=== PATIENT | female | born 1975 | race Caucasian/White ===

== ENCOUNTER 2019-05-08 23:32 | Emergency (ER) | payer MEDICAID ==
[~2019-05-08] VITALS: Ht 167.6 cm; Wt 77.1 kg
[2019-05-08 23:48] VITALS: BP 158/89; Ht 167.6 cm; Wt 77.1 kg
== END 2019-05-09 05:21 | disposition left against medical advice (07) ==
LOC: ED 23:32
DX: Z53.21 Procedure and treatment not carried out due to patient leaving prior to being seen by health care provider (principal)